=== PATIENT | male | born 1965 | race Caucasian/White ===

== ENCOUNTER 2016-12-12 06:40 | Day surgery (SDC) | payer OTHER ==
[2016-12-11 15:25] VITALS: BMI 29.9
[2016-12-12] VITALS (16 sets, daily range): BP systolic 90–135; BP diastolic 51–67; PULSE 64–84; RESP 11–27; Ht 185.4 cm; Wt 110.0 kg
[~2016-12-12] VITALS: Ht 185.4 cm; Wt 110.0 kg
[~2016-12-12 06:40] MED LIST: CEFAZOLIN 2 GM/50 ML (PMX) 50 ML IVPB SCH; SOD CHLORIDE 0.9% 1,000 ML IV SCH
[2016-12-12] MEDS ORDERED: CEFAZOLIN 1 GM INJ ONE (07:00)
[2016-12-12] MEDS ORDERED: BUPIVACAINE 0.25% (MPF) 30 ML INJ ONE (09:17)
[2016-12-12] MEDS ORDERED: POLYMYXIN/BACITRACIN 1L IRRIG ONE (09:17)
[2016-12-12] MEDS ORDERED: PROPOFOL 20 ML ONE (09:25)
[2016-12-12] MEDS ORDERED: FENTAnyl 50 MCG/ML VIAL ONE (09:26)
[2016-12-12] MEDS ORDERED: MIDAZOLAM 1 MG/ML 2 ML INJ ONE (09:26)
[2016-12-12] MEDS ORDERED: LIDOCAINE 1% (MDV) 20 ML INJ ONE (09:26)
[2016-12-12] MEDS ORDERED: PHENYLephrine (100 MCG/ML) 5ML SYG ONE (09:49)
[2016-12-12] MEDS ORDERED: LABETALOL HCL 20MG INJ IV PRN (10:00)
[2016-12-12] MEDS ORDERED: DIPHENHYDRAMINE 50 MG INJ IV PRN (10:00)
[2016-12-12] MEDS ORDERED: HYDROmorphONE (0.2 MG/ML) 10ML SYG IV PRN (10:00)
[2016-12-12] MEDS ORDERED: MEPERIDINE 25 MG INJ IV PRN (10:00)
[2016-12-12] MEDS ORDERED: hydrALAzine 20 MG INJ IV PRN (10:00)
[2016-12-12] MEDS ORDERED: DEXAMETHASONE 4 MG/ML 1 ML INJ ONE (10:05)
[2016-12-12] MEDS ORDERED: ONDANSETRON 4 MG INJ ONE (10:05)
[2016-12-12] MEDS ORDERED: FAMOTIDINE 20 MG INJ ONE (10:05)
[2016-12-12] MEDS ORDERED: KETOROLAC 30 MG INJ ONE (10:06)
[2016-12-12] MEDS: HYDROmorphONE (0.2 MG/ML) 10ML SYG IV PRN ×2 (10:56→11:00)
[2016-12-12] MEDS ORDERED: HYDROCODONE/APAP (5/325) TAB PO ONE (11:00)
--- NOTE | 2016-12-12 11:05 | OPR ---
DATE OF OPERATION: 12/12/2016 INDICATION: This is a 50-year-old male with a left inguinal hernia. He requests surgical repair. Risks, alternatives, benefits, and personnel were discussed with the patient. The patient expresses understanding and consents to the operation. PREOPERATIVE DIAGNOSIS: Left inguinal hernia. POSTOPERATIVE DIAGNOSIS: Incarcerated left inguinal hernia. OPERATION PERFORMED: 1. Open incarcerated left inguinal hernia repair with large size Ultrapro hernia system mesh. 2. [place] ilioingu[place] [address]. SURGEON: Emerald Fry MD SPECIMEN: None. COMPLICATIONS: None. ANESTHESIA: General. DESCRIPTION OF PROCEDURE: The patient was taken to the OR and prepped and draped in the usual ster ile fashion. Surgical timeout was performed. IV antibiotics were given. Left inguinal oblique inc ision was made with a 10 blade. Dissection cautery was carried down to the external oblique fascia which was opened with a 15 blade. This incision was extended medial inferiorly and lateral superior ly. Cord structures were encircled with a Warren drain. Incarcerated hernia is identified and red uced into the indirect space. This was also with the disk portion of the Ultrapro hernia syst em mesh, which is secured with 0 running Prolene from the pubic tubercle along the shelving edge of the inguinal ligament and superiorly to the internal oblique with interrupted 3-0 Vicryl. Onlay mes h was secured in a similar fashion with a running 0 Prolene from the pubic tubercle along the shelvi ng edge of the inguinal ligament. Straps were created and reapproximated with interrupted 0 Prolene to recreate the inguinal ring. Onlay mesh was secured to the internal oblique with interrupted 3-0 Vicryl. External oblique fascia was closed with running 3-0 Vicryl. Cipriano's was closed with inte rrupted 3-0 Vicryl. Skin was closed with interrupted 3-0 Vicryl and skin denise. Local anesthesia was injected into the skin space in the incision. Additionally, an ilioinguinal block was performe d 2 cm medial and inferior to the ASIS. There was good hemostasis. Dry dressings were applied. Dictated By: EMERALD FRY MD SB/NAHUM Conf#: [id number] DID#: [id number]
== END 2016-12-12 12:47 | disposition home or self-care (01) ==
LOC: SDS 06:40
PROVIDERS: ATTEND Surgery
DX: K40.30 Unilateral inguinal hernia, with obstruction, without gangrene, not specified as recurrent (principal); J44.9 Chronic obstructive pulmonary disease, unspecified; I10 Essential (primary) hypertension
CPT/HCPCS: 49507; C1781; J0690; J1100; J1170; J1885; J2250; J2405; J3010; Z7512; Z7610; J2370